=== PATIENT | female | born 1975 | race American Indian/Alaskan Native ===

== ENCOUNTER 2016-10-11 11:12 | Emergency (ER) | payer BC, MEDICAID ==
--- NOTE | 2016-10-11 12:16 | XRay Report ---
RIGHT FOOT, 3 views: History: Pain and swelling. The bony architecture is intact. Bony alignment is normal. No soft tissue abnormalities are seen. The joint spaces appear preserved. Moderate to large plantar spur is noted. IMPRESSION: Plantar spur, otherwise, unremarkable exam.
[2016-10-11] MEDS ORDERED: HCTZ PO ONE (15:29)
[2016-10-11] MEDS ORDERED: ZESTRIL PO ONE (15:29)
[2016-10-11] MEDS ORDERED: MOTRIN PO ONE (15:30)
--- NOTE | 2016-10-11 16:07 | Emergency Department Report ---
Entered by CARRINGTON HASSAN, acting as scribe for JOE JENNINGS PA. ED Lower Extremity HPI - General Chief Complaint: Extremity Injury, Lower Stated Complaint: RT FOOT PAIN Time Seen by Provider: 10/11/16 15:16 Source: patient Mode of arrival: Ambulatory Limitations: No Limitations - History of Present Illness Initial Comments: 41 year female with a PMHx of HTN and asthma presents to the ED c/o right, anterior midline foot pain that began 2 days ago. 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 Denies any trauma to her right foot, fever, chills, numbness, tingling, and ecchymosis. She states that her pain worsens with walking and driving, but denies taking any medication or applying ice to relieve pain in her right foot. Patient reports non-compliancy with her HTN Rx since 2013. NKDA. BAUM Complaint: other (right, anterior midline foot pain ) Onset/Timin -: days(s) Injury: Foot: Right (anterior midline foot pain, not injury) Place: work (Warehouse) Severity: moderate Severity scale (0 -10): 4 Improves With: immobilization Worsens With: movement (walking and driving) Associated Symptoms: swelling, able to partially bear weight. denies: numbness , tingling, other (ecchymosis) - Related Data Home Medications Medication Instructions Recorded Confirmed Last Taken Lisinopril/Hydrochlorothiazide 1 tab PO QDAY 12/21/13 10/11/16 12/21/13 12:30 [Zestoretic 20-25 mg] Metoprolol [Lopressor] 25 mg PO DAILY 12/21/13 10/11/16 12/21/13 12:30 Previous Rx's Medication Instructions Recorded Last Taken Type Albuterol Sulfate [Ventolin HFA] 2 puff IH Q4H PRN #1 hfa.aer.ad 10/27/14 Unknown Rx Ibuprofen [Motrin] 600 mg PO Q8H PRN #30 tablet 10/11/16 Unknown Rx Allergies Allergy/AdvReac Type Severity Reaction Status Date / Time No Known Allergies Allergy Verified 10/11/16 11:16 ED Review of Systems Comment: All other systems reviewed and negative Constitutional: no symptoms reported. denies: chills, fever, other (tingling) Musculoskeletal: other (right, anterior midline foot pain) Skin: denies: other (ecchymosis to right foot) Neurological: denies: numbness ED Past Medical Hx - Past Medical History Hx Hypertension: Yes Hx Asthma: Yes Additional medical history: obesity - Surgical History Additional Surgical History: cardiac ablation. . tubal ligation - Social History Smoking Status: Never Smoker Substance Use Type: None - Medications Home Medications: Home Medications Medication Instructions Recorded Confirmed Last Taken Type Lisinopril/Hydrochlorothiazide 1 tab PO QDAY 12/21/13 10/11/16 12/21/13 12:30 History [Zestoretic 20-25 mg] Metoprolol [Lopressor] 25 mg PO DAILY 12/21/13 10/11/16 12/21/13 12:30 History Albuterol Sulfate [Ventolin HFA] 2 puff IH Q4H PRN #1 hfa.aer.ad 10/27/14 Unknown Rx Ibuprofen [Motrin] 600 mg PO Q8H PRN #30 tablet 10/11/16 Unknown Rx ED Physical Exam - General Limitations: No Limitations General appearance: alert, in no apparent distress - Head Head exam: Present: atraumatic, normocephalic - Eye Eye exam: Present: normal appearance, EOMI - ENT ENT exam: Present: normal exam, mucous membranes moist - Neck Neck exam: Present: normal inspection, full ROM - Respiratory Respiratory exam: Present: normal lung sounds bilaterally. Absent: respiratory distress - Cardiovascular Cardiovascular Exam: Present: regular rate, normal rhythm - GI/Abdominal GI/Abdominal exam: Present: soft. Absent: distended - Extremities Exam Extremities exam: Present: normal inspection, full ROM - Expanded Lower Extremity Exam Right Hip exam: Present: normal inspection, full ROM Upper Leg exam: Present: normal inspection, full ROM Knee exam: Present: normal inspection, full ROM Lower Leg exam: Present: normal inspection, full ROM Ankle exam: Present: normal inspection, full ROM. Absent: tenderness, swelling Foot/Toe exam: Present: normal inspection, full ROM (minimal pain to dorsiflexion and plantar flexion motion), tenderness (right anterior midline foot TTP, denies dorsal foot pain and tenderness). Absent: swelling, ecchymosis , deformity, erythema, calcaneal tenderness, tenderness at base of 5th metatarsal Neuro vascular tendon exam: Present: no vascular compromise. Absent: pulse deficit, abnormal cap refill, motor deficit, sensory deficit, tendon deficit, pallor, peroneal nerve deficit Gait: Positive: antalgic - Back Exam Back exam: Present: normal inspection, full ROM - Neurological Exam Neurological exam: Present: alert, oriented X3 - Psychiatric Psychiatric exam: Present: normal affect, normal mood - Skin Skin exam: Present: warm, dry, intact. Absent: erythema, ecchymosis (right foot ) ED Course Vital Signs 10/11/16 11:15 Temperature 98.2 F Pulse Rate 97 H Respiratory 17 Rate Blood Pressure 176/112 O2 Sat by Pulse 100 Oximetry ED Lower Extremity MDM - Medical Decision Making A/P: Plantar fasciitis, asymptomatic htn 1- referral to podiatry, Motrin when necessary for pain 2- I advised patient to wear comfortable fitting shoes and orthotics I discussed her x-ray report with her 3- patient understood my instructions I gave her information on plantar fasciitis 4- distal pulses and sensation are fully intact patient is ambulatory ED Disposition Clinical Impression: Plantar fasciitis of right foot Disposition: DISCHARGED TO HOME OR SELFCARE Is pt being admited?: No Does the pt Need Aspirin: No Condition: Stable Instructions: Plantar Fasciitis (ED) Prescriptions: Ibuprofen [Motrin] 600 mg PO Q8H PRN #30 tablet PRN Reason: Pain Referrals: GRACE PATEL DO [Primary Care Provider] - 3-5 Days STEFANY CRANE DPM [Staff Physician] - 3-5 Days Forms: Work/School Release Form(ED) Time of Disposition: 16:04 This documentation as recorded by the [place] caldwell JASMINE,accurately reflects the service I personally performed and the decisions made by MICHAELA rojo RICHARD J, PA.
[2016-10-11 16:41] VITALS: BP 165/100
== END 2016-10-11 16:40 | disposition home or self-care (01) ==
LOC: ED 11:12
DX: M72.2 Plantar fascial fibromatosis (principal); I10 Essential (primary) hypertension; J45.909 Unspecified asthma, uncomplicated; E66.9 Obesity, unspecified

== ENCOUNTER 2018-12-08 00:25 | Emergency (ER) | payer BC ==
[2018-12-08 00:47] VITALS: BP 145/84
--- NOTE | 2018-12-08 02:31 | XRay Report ---
PROCEDURE: XR KNEE 3V RT TECHNIQUE: Right knee radiographs, AP, lateral, and oblique views. HISTORY: right knee pain COMPARISONS: None FINDINGS: Fracture (s) and/or Dislocation(s): None Alignment: Normal Joint space(s): Mild narrowing of the joint spaces Soft tissues: Mild joint effusion Bone mineralization: Normal Foreign bodies: None IMPRESSION: There is no evidence of an acute fracture or dislocation. There is a mild joint effusion. Mild arthri tis This document is electronically signed by Otilia Andersen DO., December 08 2018 02:29:05 AM ET
[2018-12-08] MEDS ORDERED: DECADRON IM ONE (04:24)
[2018-12-08] MEDS ORDERED: TYLENOL #3 PO ONE (04:25)
[2018-12-08] MEDS ORDERED: IBUPROFEN PO ONE (04:25)
--- NOTE | 2018-12-08 04:30 | Emergency Department Report ---
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 for anterior knee pain times 2 days states he works [employer] she was standing all day and gets arthritic flares from time to time patient denies injury or trauma there is no family member bleeding no bleeding break in skin patient is weight bearing MD Complaint: knee injury Onset/Timin -: days(s) Injury: Knee: Right Type of Injury: unknown, other (arthralgia hx ) Place: work Severity: moderate Severity scale (0 -10): 5 Improves With: rest Worsens With: weight bearing, movement, palpation Associated Symptoms: swelling, able to partially bear weight - Related Data Home Medications Medication Instructions Recorded Confirmed Last Taken Lisinopril/Hydrochlorothiazide 1 tab PO QDAY 12/21/13 10/11/16 12/21/13 12:30 [Zestoretic 20-25 mg] Previous Rx's Medication Instructions Recorded Last Taken Type Albuterol Sulfate [Ventolin HFA] 2 puff IH Q4H PRN #1 hfa.aer.ad 10/27/14 Unknown Rx Ibuprofen [Motrin] 600 mg PO Q8H PRN #30 tablet 10/11/16 Unknown Rx Metoprolol [Lopressor TAB] 25 mg PO DAILY #30 tablet 10/11/16 Unknown Rx Cyclobenzaprine [Flexeril] 10 mg PO TID PRN #30 tablet 12/08/18 Unknown Rx Dexamethasone [Decadron] 4 mg PO BID 3 Days #6 tablet 12/08/18 Unknown Rx Menthol/Camphor [[place] 1 applicatio TP QID PRN #1 tube 12/08/18 Unknown Rx Ointment] Naproxen [Naprosyn TAB] 500 mg PO BID #30 tablet 12/08/18 Unknown Rx Allergies Allergy/AdvReac Type Severity Reaction Status Date / Time No Known Allergies Allergy Verified 10/11/16 11:16 ED Review of Systems ROS: Stated complaint: RT KNEE PAIN Other details as noted in HPI Constitutional: denies: chills, fever Eyes: denies: eye pain, eye discharge, vision change ENT: denies: ear pain, throat pain Respiratory: denies: cough, shortness of breath, wheezing Cardiovascular: denies: chest pain, palpitations Endocrine: no symptoms reported Gastrointestinal: denies: abdominal pain, nausea, diarrhea Genitourinary: denies: urgency, dysuria, discharge Musculoskeletal: joint swelling, arthralgia. denies: back pain, myalgia Skin: denies: rash, lesions Neurological: denies: headache, weakness, paresthesias Psychiatric: denies: anxiety, depression Hematological/Lymphatic: denies: easy bleeding, easy bruising ED Past Medical Hx - Past Medical History Previous Medical History?: Yes Hx Hypertension: Yes Hx Asthma: Yes Additional medical history: obesity - Surgical History Past Surgical History?: Yes Additional Surgical History: cardiac ablation. . tubal ligation - Social History Smoking Status: Never Smoker Substance Use Type: None - Medications Home Medications: Home Medications Medication Instructions Recorded Confirmed Last Taken Type Lisinopril/Hydrochlorothiazide 1 tab PO QDAY 12/21/13 10/11/16 12/21/13 12:30 History [Zestoretic 20-25 mg] Albuterol Sulfate [Ventolin HFA] 2 puff IH Q4H PRN #1 hfa.aer.ad 10/27/14 10/11/16 Unknown Rx Ibuprofen [Motrin] 600 mg PO Q8H PRN #30 tablet 10/11/16 Unknown Rx Metoprolol [Lopressor TAB] 25 mg PO DAILY #30 tablet 10/11/16 Unknown Rx Cyclobenzaprine [Flexeril] 10 mg PO TID PRN #30 tablet 12/08/18 Unknown Rx Dexamethasone [Decadron] 4 mg PO BID 3 Days #6 tablet 12/08/18 Unknown Rx Menthol/Camphor [[place] 1 applicatio TP QID PRN #1 tube 12/08/18 Unknown Rx Ointment] Naproxen [Naprosyn TAB] 500 mg PO BID #30 tablet 12/08/18 Unknown Rx ED Physical Exam - General Limitations: No Limitations General appearance: alert, in no apparent distress - Head Head exam: Present: atraumatic, normocephalic - Eye Eye exam: Present: normal appearance, PERRL, EOMI Pupils: Present: normal accommodation - ENT ENT exam: Present: mucous membranes moist - Neck Neck exam: Present: normal inspection, tenderness, meningismus, full ROM. Absent: lymphadenopathy, thyromegaly - Respiratory Respiratory exam: Present: normal lung sounds bilaterally. Absent: respiratory distress, wheezes, stridor, chest wall tenderness - Cardiovascular Cardiovascular Exam: Present: regular rate, normal rhythm, normal heart sounds. Absent: systolic murmur, diastolic murmur, rubs, gallop - GI/Abdominal GI/Abdominal exam: Present: soft, normal bowel sounds. Absent: distended, tenderness, bruit, hernia - Rectal Rectal exam: Present: deferred - Extremities Exam Extremities exam: Present: full ROM, tenderness (right anterior knee mild swelling ), normal capillary refill, joint swelling. Absent: pedal edema, calf tenderness - Expanded Lower Extremity Exam Right Knee exam: Present: full ROM, tenderness, swelling, pain w/ pronation/supination, full knee extension. Absent: abrasion, laceration, ecchymosis, deformity, crepidus, dislocation, erythema, effusion, posterior draw sign, pain/laxity with valgus, pain/laxity with varus Lower Leg exam: Present: normal inspection, full ROM. Absent: tenderness Ankle exam: Present: normal inspection, full ROM. Absent: tenderness Foot/Toe exam: Present: normal inspection, full ROM. Absent: tenderness Neuro vascular tendon exam: Present: no vascular compromise, pulse deficit. Absent: abnormal cap refill, motor deficit, sensory deficit, tendon deficit (O), foot drop - Back Exam Back exam: Present: normal inspection, full ROM, tenderness, CVA tenderness (L), muscle spasm - Neurological Exam Neurological exam: Present: alert, oriented X3, CN II-XII intact, normal gait, reflexes normal. Absent: motor sensory deficit - Expanded Neurological Exam Expanded Patient oriented to: Present: person, place, time Sensory exam: Lower Extremity Light Touch: Normal, Lower Extremity Pin Prick: Normal, Lower Extremity Temperature: Normal, LE 2 Point Discrimination: Normal Motor strength exam: RUE: 5, LUE: 5, RLE: 5, LLE: 5 DTR: knee (R): 2+, knee (L): 2+, ankle (R): 2+, ankle (L): 2+ Best Eye Response ([place]): (4) open spontaneously Best Motor Response ([place]): (6) obeys commands Best Verbal Response ([place]): (5) oriented [place] Total: 15 - Psychiatric Psychiatric exam: Present: normal affect, normal mood - Skin Skin exam: Present: warm, dry, intact, normal color. Absent: rash ED Course Vital Signs 12/08/18 00:43 Temperature 98.5 F Pulse Rate 103 H Respiratory 16 Rate Blood Pressure 145/84 O2 Sat by Pulse 98 Oximetry ED Lower Extremity MDM - Radiology Data Radiology results: report reviewed, image reviewed interpreted by me: no fracture no dislocation mild joint effusion, plan decadron, ibuprofen, tylenol #3 - Medical Decision Making There is a small anterior knee effusion on x-ray patient maintains full knee flexion and extension, pain is 3/10, pain is musculoskeletal with minimal swelling . Her legs and was steady gait plan will DC home with NSAIDs muscle relaxants analgesic balm patient will use moist heat when necessary patient will follow up with orthopedic surgery in 2 days patient referral to same patient DC'd home in stable condition at this time but no acute distress Critical care attestation.: If time is entered above; I have spent that time in minutes in the direct care of this critically ill patient, excluding procedure time. ED Disposition Clinical Impression: Knee effusion, right Strain of right knee Qualifiers: Encounter type: initial encounter Qualified Code(s): S86.911A - Strain of unspecified muscle(s) and tendon(s) at lower leg level, right leg, initial encounter Disposition: DC-01 TO HOME OR SELFCARE Is pt being admited?: No Does the pt Need Aspirin: No Condition: Stable Instructions: Knee Effusion (ED), Arthralgia (ED), Knee Exercises (GEN) Prescriptions: Dexamethasone [Decadron] 4 mg PO BID 3 Days #6 tablet Cyclobenzaprine [Flexeril] 10 mg PO TID PRN #30 tablet PRN Reason: Muscle Spasm Naproxen [Naprosyn TAB] 500 mg PO BID #30 tablet Menthol/Camphor [[place] Ointment] 1 applicatio TP QID PRN #1 tube PRN Reason: pain Referrals: SAIDA LEON MD [Staff Physician] - 3-5 Days Forms: Work/School Release Form(ED) Time of Disposition: 04:41
== END 2018-12-08 04:50 | disposition home or self-care (01) ==
LOC: ED 00:25
DX: S86.911A Strain of unspecified muscle(s) and tendon(s) at lower leg level, right leg, initial encounter (principal); M25.461 Effusion, right knee; I10 Essential (primary) hypertension; J45.909 Unspecified asthma, uncomplicated; X58.XXXA Exposure to other specified factors, initial encounter; Y93.89 Activity, other specified; Y92.89 Other specified places as the place of occurrence of the external cause; Y99.8 Other external cause status
CPT/HCPCS: 73562; 96372; 99283; J1100

== ENCOUNTER 2019-05-20 08:57 | Emergency (ER) | payer BC ==
[2019-05-20 09:27] VITALS: BP 134/77
[2019-05-20] MEDS ORDERED: IBUPROFEN 800 MG TAB PO ONE (09:58)
--- NOTE | 2019-05-20 09:59 | Emergency Department Report ---
ED Upper Extremity Inj HPI - General Chief Complaint: Extremity Injury, Upper Stated Complaint: LEFT HAND PAIN X WEEKS Time Seen by Provider: 05/20/19 09:46 Source: patient Mode of arrival: Ambulatory Limitations: No Limitations - History of Present Illness Initial Comments: This is a 43-year-old -[place] female who presents to the emergency room with left wrist pain for 2 weeks. Patient reports pain is worse when she moved her left thumb. Patient states she used her hand frequently while at work. She reports intermittent swelling and throbbing intensity. She is applying ice with minimal improvement of symptoms. She denies injury, numbness or tingling, bruising, weakness. MD Complaint: Injury to:: left, wrist Onset/Timin -: week(s) Other Extremity Injury: Wrist: Left Other Injuries: none Handedness: right Place: home Severity scale (0 -10): 10 Improves With: cold therapy Worsens With: movement of extremity Associated Symptoms: denies other symptoms Treatments Prior to Arrival: cold therapy, NSAIDS - Related Data Home Medications Medication Instructions Recorded Confirmed Last Taken Lisinopril/Hydrochlorothiazide 1 tab PO QDAY 12/21/13 10/11/16 12/21/13 12:30 [Zestoretic 20-25 mg] Previous Rx's Medication Instructions Recorded Last Taken Type Albuterol Sulfate [Ventolin HFA] 2 puff IH Q4H PRN #1 hfa.aer.ad 10/27/14 Unknown Rx Metoprolol [Lopressor TAB] 25 mg PO DAILY #30 tablet 10/11/16 Unknown Rx Cyclobenzaprine [Flexeril] 10 mg PO TID PRN #30 tablet 12/08/18 Unknown Rx Menthol/Camphor [[place] 1 applicatio TP QID PRN #1 tube 12/08/18 Unknown Rx Ointment] Naproxen [Naprosyn TAB] 500 mg PO BID #30 tablet 12/08/18 Unknown Rx dexAMETHasone [Decadron] 4 mg PO BID 3 Days #6 tablet 12/08/18 Unknown Rx Ibuprofen [Motrin 600 MG tab] 600 mg PO Q8H PRN #30 tablet 05/20/19 Unknown Rx Allergies Allergy/AdvReac Type Severity Reaction Status Date / Time No Known Allergies Allergy Verified 10/11/16 11:16 ED Review of Systems ROS: Stated complaint: LEFT HAND PAIN X WEEKS Other details as noted in HPI Constitutional: denies: chills, fever Respiratory: denies: cough, shortness of breath, wheezing Cardiovascular: denies: chest pain, palpitations Gastrointestinal: denies: abdominal pain, nausea, diarrhea Musculoskeletal: arthralgia (left wrist pain and swelling). denies: back pain, joint swelling Skin: denies: rash, lesions Neurological: denies: headache, weakness, paresthesias Psychiatric: denies: anxiety, depression ED Past Medical Hx - Past Medical History Previous Medical History?: Yes Hx Hypertension: Yes Hx Asthma: Yes Additional medical history: obesity - Surgical History Past Surgical History?: Yes Additional Surgical History: cardiac ablation. . tubal ligation - Social History Smoking Status: Never Smoker - Medications Home Medications: Home Medications Medication Instructions Recorded Confirmed Last Taken Type Lisinopril/Hydrochlorothiazide 1 tab PO QDAY 12/21/13 10/11/16 12/21/13 12:30 History [Zestoretic 20-25 mg] Albuterol Sulfate [Ventolin HFA] 2 puff IH Q4H PRN #1 hfa.aer.ad 10/27/14 10/11/16 Unknown Rx Metoprolol [Lopressor TAB] 25 mg PO DAILY #30 tablet 10/11/16 Unknown Rx Cyclobenzaprine [Flexeril] 10 mg PO TID PRN #30 tablet 12/08/18 Unknown Rx Menthol/Camphor [[place] 1 applicatio TP QID PRN #1 tube 12/08/18 Unknown Rx Ointment] Naproxen [Naprosyn TAB] 500 mg PO BID #30 tablet 12/08/18 Unknown Rx dexAMETHasone [Decadron] 4 mg PO BID 3 Days #6 tablet 12/08/18 Unknown Rx Ibuprofen [Motrin 600 MG tab] 600 mg PO Q8H PRN #30 tablet 05/20/19 Unknown Rx ED Physical Exam - General Limitations: No Limitations General appearance: alert, in no apparent distress - Neck Neck exam: Present: normal inspection, full ROM. Absent: tenderness, meningismus, lymphadenopathy, thyromegaly - Respiratory Respiratory exam: Present: normal lung sounds bilaterally. Absent: respiratory distress - Cardiovascular Cardiovascular Exam: Present: regular rate, normal rhythm. Absent: systolic murmur, diastolic murmur, rubs, gallop - GI/Abdominal GI/Abdominal exam: Present: soft, normal bowel sounds - Expanded Upper Extremity Exam Left Upper Arm exam: Present: normal inspection, full ROM Elbow exam: Present: normal inspection, full ROM Forearm Wrist exam: Present: full ROM, pain with axial thumb loading, other (Phalen's and tinel's at carpal tunel positive in LUE.). Absent: tenderness, swelling, abrasion, laceration, ecchymosis, deformity, crepidus, dislocation, erythema, tenderness over anatomical snuff box Hand Wrist exam: Present: normal inspection, full ROM Neuro motor exam: Present: wrist extension intact, thumb opposition intact, thumb IP flexion intact, thumb adduction intact, fingers 2-5 abduction intact Neurosensory exam: Present: radial nerve intact, ulnar nerve intact, median nerve intact Vascular: Present: normal capillary refill (brisk), radial pulse (2+) - Neurological Exam Neurological exam: Present: alert, oriented X3 - Expanded Neurological Exam Expanded Patient oriented to: Present: person, place, time Speech: Present: fluid speech Sensory exam: Upper Extremity Light Touch: Normal, Upper Extremity Pin Prick: Normal, Upper Extremity Temperature: Normal, UE 2 Point Discrimination: Normal Motor strength exam: RUE: 5, LUE: 5 DTR: bicep (R): 4+, bicep (L): 4+, tricep (R): 4+, tricep (L): 4+ Best Eye Response ([place]): (4) open spontaneously Best Motor Response ([place]): (6) obeys commands Best Verbal Response ([place]): (5) oriented [place] Total: 15 - Psychiatric Psychiatric exam: Present: normal affect, normal mood - Skin Skin exam: Present: warm, dry, intact, normal color. Absent: rash ED Course Vital Signs 05/20/19 09:25 Temperature 98.5 F Pulse Rate 105 H Respiratory 18 Rate Blood Pressure 134/77 O2 Sat by Pulse 100 Oximetry ED Medical Decision Making - Radiology Data Radiology results: report reviewed LEFT WRIST, 4 VIEWS INDICATION: Left wrist pain for 2 weeks. COMPARISON: None. IMPRESSION: No acute osseous or soft tissue abnormality. No significant DJD. - Medical Decision Making Patient was examined by me. Patient is nontoxic appearing and stable. Vitals are normal. Obtained x-ray of left wrist. No acute osseous or soft tissue abnormality. No significant DJD. Positive Phalen test. Findings are suggestive of carpal tunnel syndrome. Given analgesics while in the ER. Applied wrist brace to left wrist. Referral to Orthopedic surgeon for possible outpatient US and further management. Patient informed of results. Start ibuprofen for pain. Follow up with PCP as well or return to the ER with worsening symptoms. Patient discharged home in stable condition. Critical care attestation.: If time is entered above; I have spent that time in minutes in the direct care of this critically ill patient, excluding procedure time. ED Disposition Clinical Impression: Wrist pain, left Carpal tunnel syndrome Qualifiers: Laterality: left Qualified Code(s): G56.02 - Carpal tunnel syndrome, left upper limb Disposition: TO HOME OR SELFCARE Is pt being admited?: No Condition: Stable Instructions: Carpal Tunnel Syndrome (ED), Arthralgia (ED) Additional Instructions: Follow up with orthopedics from the list provided below. Take ibuprofen or Tylenol for pain. Prescriptions: Ibuprofen [Motrin 600 MG tab] 600 mg PO Q8H PRN #30 tablet PRN Reason: Pain Referrals: [facility] [Outside] - 3-5 Days [facility] [Outside] - 3-5 Days [facility] [Provider Group] - 3-5 Days [facility] [Provider Group] - 3-5 Days SAIDA LEON MD [Staff Physician] - 3-5 Days Forms: Work/School Release Form(ED) Time of Disposition: 10:50
--- NOTE | 2019-05-20 10:36 | XRay Report ---
LEFT WRIST, 4 VIEWS INDICATION: Left wrist pain for 2 weeks. COMPARISON: None. IMPRESSION: No acute osseous or soft tissue abnormality. No significant DJD. Signer Name: Toribio Daly Jr, MD Signed: 05/20/2019 10:32 AM Workstation Name: [id number]
== END 2019-05-20 11:34 | disposition home or self-care (01) ==
LOC: ED 08:57
DX: G56.02 Carpal tunnel syndrome, left upper limb (principal); I10 Essential (primary) hypertension; J45.909 Unspecified asthma, uncomplicated; E66.9 Obesity, unspecified; Z68.42 Body mass index [BMI] 45.0-49.9, adult; Z98.51 Tubal ligation status; Z79.899 Other long term (current) drug therapy; Z79.1 Long term (current) use of non-steroidal anti-inflammatories (NSAID)
CPT/HCPCS: 29260; 99283

== ENCOUNTER 2020-11-22 11:14 | Emergency (ER) | payer BC ==
[2020-11-22 12:43] LABS: Basophils # (Auto) 0.1 K/mm3 (0.0-0.1); Basophils % (Auto) 0.7 % (0.0-1.8); Eosinophils # (Auto) 0.2 K/mm3 (0.0-0.4); Lymphocytes # (Auto) 2.1 K/mm3 (1.2-5.4); Lymphocytes % (Auto) 24.4 % (13.4-35.0); Mean Corpuscular HGB Conc 30 % (30-34); Monocytes # (Auto) 0.4 K/mm3 (0.0-0.8); Monocytes % (Auto) 5.2 % (0.0-7.3); Platelet Count 428 K/mm3 (140-440); Red Blood Count 5.49 M/mm3 (3.65-5.03); Red Cell Distribution Width 18.6 % (13.2-15.2)
[2020-11-22 12:49] LABS: Hematocrit 33.9 % (30.3-42.9); Hemoglobin 10.1 gm/dl (10.1-14.3); Mean Corpuscular Volume 62 fl (79-97)
[2020-11-22 13:02] LABS: Alanine Aminotransferase 11 units/L (7-56); Albumin 3.7 g/dL (3.9-5); Blood Urea Nitrogen 11 mg/dL (7-17); Calcium 8.3 mg/dL (8.4-10.2); Hemolysis Index 3
[2020-11-22 13:09] LABS: BUN/Creatinine Ratio 16
--- NOTE | 2020-11-22 14:34 | Emergency Department Report ---
ED Palpitations HPI - General Chief Complaint: Arrhythmia/Palpitations Stated Complaint: CHEST PAIN Time Seen by Provider: 11/22/20 14:22 Source: patient, EMS Mode of arrival: Stretcher Limitations: No Limitations - History of Present Illness Initial Comments: Chief complaint: My heart was beating fast. HPI: This is a 45-year-old female with history of SVT and atrial fibrillation status post cardiac ablation in 2003 who presents with rapid heartbeat this morning. EMS reported SVT 190s which converted to atrial fibrillation 140s. Patient now is in sinus rhythm. She denies any symptoms. She had heart rotation or shortness of breath. She does not take rate control medication. Only takes lisinopril. Patient has been in her normal state of health. Patient has had 3 episodes of SVT atrial fibrillation since ablation in 2003. Most recent episode occurred on Mother's Day. She does have a personal home health care social worker. MD Complaint: "heart racing", atrial fibrillation -: Sudden, This morning Context: occured during rest Arrythmia History: atrial fibrillation, SVT Associated Symptoms: shortness of breath Treatments Prior to Arrival: other (EMS transport) - Related Data Home Medications Medication Instructions Recorded Confirmed Last Taken Lisinopril/Hydrochlorothiazide 1 tab PO QDAY 12/21/13 11/22/20 12/21/13 12:30 [Zestoretic 20-25 mg] Previous Rx's Medication Instructions Recorded Last Taken Type Metoprolol [Lopressor TAB] 25 mg PO BID #60 tablet 11/22/20 Unknown Rx Allergies Allergy/AdvReac Type Severity Reaction Status Date / Time No Known Allergies Allergy Verified 11/22/20 12:13 ED Review of Systems ROS: Stated complaint: CHEST PAIN Other details as noted in HPI Comment: All other systems reviewed and negative Constitutional: denies: fever, malaise ENT: denies: epistaxis Respiratory: shortness of breath. denies: cough Cardiovascular: palpitations Gastrointestinal: denies: abdominal pain, nausea, vomiting ED Past Medical Hx - Past Medical History Previous Medical History?: Yes Hx Hypertension: Yes Hx Asthma: Yes Additional medical history: obesity. Afib ablasion- 2003 - Surgical History Past Surgical History?: Yes Additional Surgical History: cardiac ablation. . tubal ligation - Social History Smoking Status: Never Smoker Substance Use Type: None - Medications Home Medications: Home Medications Medication Instructions Recorded Confirmed Last Taken Type Lisinopril/Hydrochlorothiazide 1 tab PO QDAY 12/21/13 11/22/20 12/21/13 12:30 History [Zestoretic 20-25 mg] Metoprolol [Lopressor TAB] 25 mg PO BID #60 tablet 11/22/20 Unknown Rx ED Physical Exam - General Limitations: No Limitations General appearance: alert, in no apparent distress - Head Head exam: Present: atraumatic, normocephalic - Eye Eye exam: Present: normal appearance - ENT ENT exam: Present: mucous membranes moist - Neck Neck exam: Present: normal inspection, full ROM - Respiratory Respiratory exam: Present: normal lung sounds bilaterally. Absent: respiratory distress, wheezes, rales, rhonchi - Cardiovascular Cardiovascular Exam: Present: regular rate, normal rhythm, normal heart sounds. Absent: systolic murmur, diastolic murmur, rubs, gallop - GI/Abdominal GI/Abdominal exam: Present: soft, normal bowel sounds. Absent: distended, tenderness, guarding, rebound - Extremities Exam Extremities exam: Present: normal inspection - Neurological Exam Neurological exam: Present: alert, oriented X3 - Psychiatric Psychiatric exam: Present: normal affect, normal mood - Skin Skin exam: Present: warm, dry, intact, normal color. Absent: rash ED Course Vital Signs 11/22/20 11/22/20 11/22/20 11:53 11:56 12:00 Temperature Pulse Rate 138 H 173 H Respiratory 9 L Rate Blood Pressure O2 Sat by Pulse 96 98 Oximetry 11/22/20 11/22/20 11/22/20 12:08 12:15 12:31 Temperature 98.4 F Pulse Rate 163 H 152 H 149 H Respiratory 21 20 12 Rate Blood Pressure 127/74 142/73 154/53 O2 Sat by Pulse 100 97 96 Oximetry 11/22/20 11/22/20 11/22/20 12:45 13:01 13:15 Temperature Pulse Rate 165 H 100 H 101 H Respiratory 13 19 18 Rate Blood Pressure 134/84 120/73 112/76 O2 Sat by Pulse 99 96 95 Oximetry 11/22/20 11/22/20 11/22/20 13:31 14:01 14:31 Temperature Pulse Rate 91 H 92 H 100 H Respiratory 14 17 14 Rate Blood Pressure 118/75 122/63 119/56 O2 Sat by Pulse 98 99 98 Oximetry ED Medical Decision Making - Lab Data Result diagrams: 11/22/20 12:24 11/22/20 12:24 Laboratory Results - last 24 hr 11/22/20 11/22/20 12:24 12:24 WBC 8.5 RBC 5.49 H Hgb 10.1 Hct 33.9 MCV 62 L MCH 19 L MCHC 30 RDW 18.6 H Plt Count 428 Lymph % (Auto) 24.4 [place] % (Auto) 5.2 Eos % (Auto) 2.0 Baso % (Auto) 0.7 Lymph # (Auto) 2.1 [place] # (Auto) 0.4 Eos # (Auto) 0.2 Baso # (Auto) 0.1 Seg Neutrophils % 67.7 Seg Neutrophils # 5.8 Sodium 137 Potassium 4.2 Chloride 100.1 Carbon Dioxide 29 Anion Gap 12 BUN 11 Creatinine 0.7 Estimated GFR > 60 BUN/Creatinine Ratio 16 Glucose 135 H Calcium 8.3 L Total Bilirubin 0.20 AST 9 ALT 11 Alkaline Phosphatase 73 Troponin T < 0.010 Total Protein 6.9 Albumin 3.7 L Albumin/Globulin Ratio 1.2 - EKG Data Rate: normal - EKG Data 11/22/20 14:34 EKG #1 obtained 1153 EKG interpreted by me Atrial fibrillation rapid ventricular rate 140 bpm normal axis normal intervals no ST elevation nonischemic T wave pattern 11/22/20 14:35 11/22/20 15:10 EKG #2 obtained at 1504 EKG interpreted by ut Normal sinus rhythm rate 90 beats minute normal axis normal intervals no ST-T sign ischemia - Radiology Data Radiology results: report reviewed - Medical Decision Making Recurrent SVT/atrial fibrillation with RVR: Patient spontaneously converted to sinus rhythm. Repeat EKG confirmed sinus rhythm. Patient is currently symptom- free. I will prescribe metoprolol. She will follow-up with her primary home health care social worker. Critical care attestation.: If time is entered above; I have spent that time in minutes in the direct care of this critically ill patient, excluding procedure time. ED Disposition Clinical Impression: SVT (supraventricular tachycardia), Atrial fibrillation with RVR Disposition: TO HOME OR SELFCARE Is pt being admited?: No Does the pt Need Aspirin: No Condition: Stable Instructions: Atrial Fibrillation Prescriptions: Metoprolol [Lopressor TAB] 25 mg PO BID #60 tablet
[2020-11-22 15:28] VITALS: BP 110/57
--- NOTE | 2020-11-23 10:49 | Electrocardiograph Report ---
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
--- NOTE | 2020-11-23 10:50 | Electrocardiograph Report ---
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
== END 2020-11-22 15:28 | disposition home or self-care (01) ==
LOC: ED 11:14
DX: I47.1 Supraventricular tachycardia (principal); I48.91 Unspecified atrial fibrillation; I10 Essential (primary) hypertension; J45.909 Unspecified asthma, uncomplicated; Z98.890 Other specified postprocedural states; Z79.899 Other long term (current) drug therapy
CPT/HCPCS: 36415; 80053; 84484; 85025; 93005